=== PATIENT | female | born 1965 | race Caucasian/White ===

== ENCOUNTER 2019-03-04 18:35 | Emergency (ER) | payer OTHER ==
[~2019-03-04 18:35] MED LIST: NO
[2019-03-04] MEDS ORDERED: LEVO-3 PO (18:45)
[2019-03-04] MEDS ORDERED: ATOR20TA22 PO (18:45)
--- NOTE | 2019-03-04 18:49 | ER Report ---
History and Physical Time Seen By MD: 18:47 Hx. of Stated Complaint: STATES HER RESTING HEART RATE WOULD SHOOT UP RANDOMLY OVER THE PAST WEEK HPI/ROS CHIEF COMPLAINT: racing heart HISTORY OF PRESENT ILLNESS: This is a 53 year old female. She has been having episodes of racing heart this past week. Intermittent. Seems worse with position change or activity, but not entirely consistent. Has had some mild chest pressure with this, but not short of breath. No nausea or vomiting. No fevers or chills. No abdominal pain. No trouble with bowel or bladder problems. Allergies: Coded Allergies: No Known Drug Allergies (Verified , 03/04/19) Home Meds Reported Medications Levothyroxine Sodium (LEVOTHYROXINE SODIUM) 100 Mcg Tablet, 112 MCG PO QDAY, TAB 03/04/19 Atorvastatin Calcium (LIPITOR) 20 Mg Tablet, 1 TAB PO QDAY, TAB 03/04/19 [No] No Conflict Check 05/04/08 Reviewed Nurses Notes: Yes Constitutional Vital Sign - Last 24 Hours 03/04/19 03/04/19 03/04/19 03/04/19 18:40 19:00 19:17 19:19 Pulse 97 Resp 20 17 B/P (MAP) 139/90 (106) 133/84 (100) 139/99 (112) Pulse Ox 91 O2 Delivery Room Air 03/04/19 03/04/19 03/04/19 03/04/19 19:20 19:27 19:30 20:00 Pulse 94 98 Resp 13 23 B/P (MAP) 138/107 (117) 133/84 (100) 138/98 (111) 146/95 (112) 139/99 (112) 138/107 (117) Pulse Ox 90 89 03/04/19 03/04/19 03/04/19 03/04/19 20:30 21:00 21:30 22:00 Pulse 92 82 84 87 Resp 11 14 12 16 B/P (MAP) 136/85 (102) 129/84 (99) 138/90 (106) 123/83 (96) Pulse Ox 92 90 91 93 03/04/19 22:05 Pulse 88 Resp 17 Pulse Ox 91 Intake and Output 03/04/19 03/04/19 03/05/19 15:01 23:01 07:01 Intake Total 1000 ml Balance 1000 ml Physical Exam General Appearance: The patient is alert. No acute distress. Eyes: Pupils are equal, round. No pallor, injection or icterus. ENT: Mucous membranes are moist. Normal oral mucosa. Neck: Supple and non tender. Respiratory: Lungs are clear to auscultation. Cardiovascular: Regular rate and rhythm. No murmurs, gallops or rubs. Normal capillary refill. No edema. Gastrointestinal: Abdomen is soft and non tender. Nondistended. Normal active bowel sounds. Neurological: Alert and oriented x3. No focal neurologic deficits Skin: Warm and dry. DIFFERENTIAL DIAGNOSIS: After history and physical exam, differential diagnosis was considered for unexplained racing heartbeat, looking for possible arrhythmias, other cardiac abnormalities, electrolyte abnormalities. Medical Decision Making Data Points Result Diagram: 03/04/19 1845 03/04/19 1845 Laboratory Hematology Test 03/04/19 18:45 03/04/19 21:29 Red Blood Count 5.54 M/uL (4.17-5.56) Mean Corpuscular Volume 86.8 fL (80.0-96.0) Mean Corpuscular Hemoglobin 30.4 pg (26.0-33.0) Mean Corpuscular Hemoglobin Concent 35.0 g/dL (32.0-36.0) Red Cell Distribution Width 13.2 % (11.5-14.5) Mean Platelet Volume 8.7 fL (7.2-11.1) Neutrophils (%) (Auto) 60.2 % (39.4-72.5) Lymphocytes (%) (Auto) 30.7 % (17.6-49.6) Monocytes (%) (Auto) 6.7 % (4.1-12.4) Eosinophils (%) (Auto) 1.6 % (0.4-6.7) Basophils (%) (Auto) 0.8 % (0.3-1.4) Nucleated RBC Relative Count (auto) 0.1 /100WBC Neutrophils # (Auto) 6.1 K/uL (2.0-7.4) Lymphocytes # (Auto) 3.1 K/uL (1.3-3.6) Monocytes # (Auto) 0.7 K/uL (0.3-1.0) Eosinophils # (Auto) 0.2 K/uL (0.0-0.5) Basophils # (Auto) 0.1 K/uL (0.0-0.1) Nucleated RBC Absolute Count (auto) 0.01 K/uL Sodium Level 141 mmol/L (137-145) Potassium Level 3.6 mmol/L (3.5-5.0) Chloride Level 106 mmol/L (98-107) Carbon Dioxide Level 22 mmol/L (22-31) Blood Urea Nitrogen 15 mg/dl (7-18) Creatinine 0.80 mg/dl (0.52-1.04) Glomerular Filtration Rate Calc > 60.0 Random Glucose 124 mg/dl (75-110) Calcium Level 10.2 mg/dl (8.4-10.2) Total Bilirubin 0.7 mg/dl (0.2-1.3) Aspartate Amino Transf (AST/SGOT) 31 U/L (0-35) Alanine Aminotransferase (ALT/SGPT) 50 U/L (0-56) Alkaline Phosphatase 71 U/L (0-126) Troponin I < 0.012 ng/ml Total Protein 8.2 g/dl (6.3-8.2) Albumin 4.7 g/dl (3.5-5.0) Urine Color Straw Urine Clarity Clear Urine pH 6.0 pH (4.8-9.5) Urine Specific [place] 1.004 Urine Protein Negative mg/dL (NEGATIVE) Urine Glucose (UA) Negative mg/dL (NEGATIVE) Urine Ketones Negative mg/dL (NEGATIVE) Urine Blood Negative (NEGATIVE) Urine Nitrite Negative (NEGATIVE) Urine Bilirubin Negative (NEGATIVE) Urine Urobilinogen Negative mg/dL (0.2-1.9) Urine Leukocyte Esterase Negative (NEGATIVE) Urine RBC 1 /HPF (0-2/HPF) Urine WBC 1 /HPF (0-5/HPF) Urine Squamous Epithelial Cells Many /LPF (</=FEW) Urine Bacteria Few /HPF (NONE-FEW) Urine Mucus None /HPF (NONE-FEW) Chemistry Test 03/04/19 18:45 03/04/19 21:29 White Blood Count 10.1 k/uL (4.5-11.0) Red Blood Count 5.54 M/uL (4.17-5.56) Hemoglobin 16.8 g/dL (12.0-16.0) Hematocrit 48.1 % (34.0-47.0) Mean Corpuscular Volume 86.8 fL (80.0-96.0) Mean Corpuscular Hemoglobin 30.4 pg (26.0-33.0) Mean Corpuscular Hemoglobin Concent 35.0 g/dL (32.0-36.0) Red Cell Distribution Width 13.2 % (11.5-14.5) Platelet Count 264 K/uL (150-450) Mean Platelet Volume 8.7 fL (7.2-11.1) Neutrophils (%) (Auto) 60.2 % (39.4-72.5) Lymphocytes (%) (Auto) 30.7 % (17.6-49.6) Monocytes (%) (Auto) 6.7 % (4.1-12.4) Eosinophils (%) (Auto) 1.6 % (0.4-6.7) Basophils (%) (Auto) 0.8 % (0.3-1.4) Nucleated RBC Relative Count (auto) 0.1 /100WBC Neutrophils # (Auto) 6.1 K/uL (2.0-7.4) Lymphocytes # (Auto) 3.1 K/uL (1.3-3.6) Monocytes # (Auto) 0.7 K/uL (0.3-1.0) Eosinophils # (Auto) 0.2 K/uL (0.0-0.5) Basophils # (Auto) 0.1 K/uL (0.0-0.1) Nucleated RBC Absolute Count (auto) 0.01 K/uL Glomerular Filtration Rate Calc > 60.0 Calcium Level 10.2 mg/dl (8.4-10.2) Total Bilirubin 0.7 mg/dl (0.2-1.3) Aspartate Amino Transf (AST/SGOT) 31 U/L (0-35) Alanine Aminotransferase (ALT/SGPT) 50 U/L (0-56) Alkaline Phosphatase 71 U/L (0-126) Troponin I < 0.012 ng/ml Total Protein 8.2 g/dl (6.3-8.2) Albumin 4.7 g/dl (3.5-5.0) Urine Color Straw Urine Clarity Clear Urine pH 6.0 pH (4.8-9.5) Urine Specific [place] 1.004 Urine Protein Negative mg/dL (NEGATIVE) Urine Glucose (UA) Negative mg/dL (NEGATIVE) Urine Ketones Negative mg/dL (NEGATIVE) Urine Blood Negative (NEGATIVE) Urine Nitrite Negative (NEGATIVE) Urine Bilirubin Negative (NEGATIVE) Urine Urobilinogen Negative mg/dL (0.2-1.9) Urine Leukocyte Esterase Negative (NEGATIVE) Urine RBC 1 /HPF (0-2/HPF) Urine WBC 1 /HPF (0-5/HPF) Urine Squamous Epithelial Cells Many /LPF (</=FEW) Urine Bacteria Few /HPF (NONE-FEW) Urine Mucus None /HPF (NONE-FEW) Urinalysis Test 03/04/19 21:29 Urine Color Straw Urine Clarity Clear Urine pH 6.0 pH (4.8-9.5) Urine Specific [place] 1.004 Urine Protein Negative mg/dL (NEGATIVE) Urine Glucose (UA) Negative mg/dL (NEGATIVE) Urine Ketones Negative mg/dL (NEGATIVE) Urine Blood Negative (NEGATIVE) Urine Nitrite Negative (NEGATIVE) Urine Bilirubin Negative (NEGATIVE) Urine Urobilinogen Negative mg/dL (0.2-1.9) Urine Leukocyte Esterase Negative (NEGATIVE) Urine RBC 1 /HPF (0-2/HPF) Urine WBC 1 /HPF (0-5/HPF) Urine Squamous Epithelial Cells Many /LPF (</=FEW) Urine Bacteria Few /HPF (NONE-FEW) Urine Mucus None /HPF (NONE-FEW) EKG/Imaging EKG Interpretation 12 lead EKG: Rhythm: Sinus tachycardia, rate 107 Wallace: normal QRS: normal ST segments: normal Imaging EXAMINATION: Portable AP Chest HISTORY: Heart racing. COMPARISON: None. FINDINGS: The lungs are clear. No focal consolidation or pleural effusion. No pneumothorax. Normal cardiomediastinal silhouette, with normal heart size and pulmonary vascularity. Visualized osseous structures are unremarkable. IMPRESSION: Negative chest. Report Dictated By: Dorian Brown MD at 03/04/2019 7:21 PM ED Course/Re-evaluation Clinical Indication for ER IV: Hydration, IV Access ED Course Increase in heart rate with orthostatic vital signs but blood pressure remained stable. BUN and creatinine ratio suggests slight dehydration. The rest of labs are unremarkable. TSH is still pending. EKG negative other than sinus tachycardia. Heart rate is now normal. Chest x-ray negative. Reviewed all this with the patient. Recommended Holter monitor as initial evaluation over the weekend and then follow up with primary care for further evaluation. Decision to Disposition Date: Mar 04, 2019 Decision to Disposition Time: 22:24 Depart Departure Latest Vital Signs Vital Signs Date Time Temp Pulse Resp B/P (MAP) Pulse Ox O2 Delivery O2 Flow Rate FiO2 03/04/19 22:05 88 17 91 03/04/19 22:00 123/83 (96) 03/04/19 18:40 Room Air Impression: Primary Impression: Rapid heartbeat Condition: Improved Disposition: HOME OR SELF-CARE Referrals: SATISH FLETCHER PA-C (PCP) Patient Instructions: Tachycardia (ED) Additional Instructions: We did not find evidence of a major problem with your heart tonight. We would like to have you wear a 48 hour heart monitor and have you follow-up with your regular doctor. Increase fluid intake as well. RICK PUENTES MD Mar 04, 2019 18:49
[2019-03-04 19:07] LABS: PLATELET COUNT, AUTOMATED 264 K/uL (150-450)
--- NOTE | 2019-03-04 19:28 | RADIOLOGY IMAGING REPORT ---
FACILITY: PATIENT NAME: Sarahi Schaffer : 1965 MR: [id number] V: [id number] EXAM DATE: ORDERING PHYSICIAN: RICK PUENTES TECHNOLOGIST: Location: [facility] Patient: Sarahi Schaffer : 1965 Visit/Account:[id number] Date of Sevice: 03/04/2019 EXAMINATION: Portable AP Chest HISTORY: Heart racing. COMPARISON: None. FINDINGS: The lungs are clear. No focal consolidation or pleural effusion. No pneumothorax. Normal cardiomedi astinal silhouette, with normal heart size and pulmonary vascularity. Visualized osseous structures are unremarkable. IMPRESSION: Negative chest. Report Dictated By: Dorian Brown MD at 03/04/2019 7:21 PM Report E-Signed By: Dorian Brown MD at 03/04/2019 7:22 PM WSN:[id number]
[2019-03-04] MEDS ORDERED: NS(*) 0.9% 1000 ML BAG 1,000 ML IV ONE (20:40)
[2019-03-04 22:00] VITALS: BP 123/83
--- NOTE | 2019-03-04 23:24 | EKG ---
FACILITY: [facility] PATIENT NAME: MONY FLORES : [id number] MR: [id number] V: [id number] EXAM DATE: ORDERING PHYSICIAN: RICK PUENTES TECHNOLOGIST: JENNIE Test Reason : TACHYCARDIA Blood Pressure : / mmHG Vent. Rate : 107 BPM Atrial Rate : 107 BPM P-R Int : 130 ms QRS Dur : 084 ms QT Int : 342 ms P-R-T Axes : 050 008 046 degrees QTc Int : 456 ms Sinus tachycardia Otherwise normal ECG No previous ECGs available Confirmed by LASHAY LINDSEY ([id number]) on 03/05/2019 6:45:31 AM Referred By: Confirmed By:LASHAY LINDSEY
--- NOTE | 2019-03-07 21:12 | RT HOLTER TEST ---
FACILITY: [facility] PATIENT NAME: MONY FLORES : [id number] MR: [id number] V: [id number] EXAM DATE: ORDERING PHYSICIAN: RICK PUENTES TECHNOLOGIST: KIMO Hook-up date: 2019-03-04 23:06:00 Duration: 47:59:00 Test Indications: TACHYCARDIA Medications: N/A 238692 QRS complexes 39 Ventricular ectopics which represent <1 % of total QRS comp. 29 Supraventricular ectopics which represent <1 % of total QRS comp. * Paced QRS complexes which represent % of total QRS comp. VENTRICULAR ECTOPY 37 Isolated 0 Bigeminal Cycles 1 Couplets 0 Runs 0 Beats in Runs * Beats LONGEST at * BPM at :: -- * Beats FASTEST at * BPM at :: -- SUPRAVENTRICULAR ECTOPY 10 Isolated 1 Couplets 1 Runs 17 Beats in Runs 17 Beats LONGEST at 167 BPM at 15:05:31 2019-03-05 17 Beats FASTEST at 167 BPM at 15:05:31 2019-03-05 HEART RATES 45 MIN at 04:41:25 2019-03-06 79 AVG 170 MAX at 15:05:36 2019-03-05 LONGEST RR 1.440 secs at 04:41:21 2019-03-06 Channel 2 -12.800 mm MIN at 23:06:00 2019-03-04 -12.800 mm MAX at 23:06:00 2019-03-04 Channel 3 -12.800 mm MIN at 23:06:00 2019-03-04 -12.800 mm MAX at 23:06:00 2019-03-04 Rare ventricular ectopy with one couplet recorded. No runs were noted. Rare supraventricular ectopy with one short burst [seventeen (17) beats] of supraventricular tachycar mian, which appears may be atrial fibrillation. No pauses of more than two (2) seconds were recorded. Sinus bradycardia was noted during usual sleeping hours, Intermittent T wave inversion was noted throughout the study. Confirmed by EMELY BRUNER ([id number]) on 03/07/2019 9:10:17 PM Referred By: Overread By: EMELY BRUNER
== END 2019-03-04 23:01 | disposition home or self-care (01) ==
LOC: ER 18:50
DX: R00.0 Tachycardia, unspecified (principal)
CPT/HCPCS: 71045; 81001; 84443; 84484; 85025; 93005; 93225; 96360; 96361; 99284; J7030; 82040; 82247; 82310; 82374; 82435; 82565; 82947; 84075; 84132; 84155; 84295; 84450; 84460; 84520; 93226